=== PATIENT | male | born 1940 | race Caucasian/White ===

== ENCOUNTER 2022-10-15 16:54 | Emergency (ER) | payer MEDICARE, BC ==
[~2022-10-15] VITALS: Ht 180.3 cm; Wt 90.9 kg
[2022-10-15 17:00] VITALS: BP 138/70
[2022-10-15 17:16] VITALS: BP 127/87
[2022-10-15 17:31] VITALS: BP 145/74
[2022-10-15 17:34] LABS: BASO% 0.1 % (0-3); EOS% 1.7 % (0-8); HEMATOCRIT 40.9 % (39.0-50.0); HEMOGLOBIN 13.7 g/dl (14.0-18.0); IMMATURE GRANULOCYTES 0.1 % (0.0-5.0); MEAN CELL VOLUME 97.4 fL CALC (80.0-100.0); MEAN CORPUSCULAR HGB 32.6 pG CALC (26.0-32.0); MEAN CORPUSCULAR HGB CONC 33.5 g/dL CAL (32.0-36.0); MONO% 7.6 % (2-13); NEUT# 5.57 thou/uL (1.82-7.42); NEUT% 71.5 % (42-76); RED BLOOD COUNT 4.2 mill/uL (4.70-6.10); RED CELL DISTRI WIDTH 13.1 % (11.5-15.5)
[2022-10-15 17:47] LABS: ALBUMIN 3.9 g/dL (3.2-5.0); ALKALINE PHOSPHATASE 87 u/l (38-126); ANION GAP 8 (6-22 (CALC)); BILIRUBIN, TOTAL 0.8 mg/dL (0.2-1.3); BUN 17 mg/dL (8-23); BUN/CREATININE RATIO 19 (12-20 (CALC)); CARBON DIOXIDE 30 mmol/l (22-30); CHLORIDE 104 mmol/l (95-108); CREATININE 0.9 mg/dL (0.7-1.3); GFR FOR AFR.AMER. > 60 ML/MIN (>=60 (CALC)); GFR OTHER RACES > 60 ML/MIN (>=60 (CALC)); POTASSIUM 4.7 mmol/l (3.5-5.1); SGOT/AST 31 u/l (19-48); SODIUM 138 mmol/l (137-146); TOTAL PROTEIN 6.1 g/dL (6.3-8.2)
[2022-10-15 19:02] VITALS: BP 156/69
[2022-10-15 19:16] VITALS: BP 144/79
[2022-10-15 19:22] VITALS: BP 144/79
== END 2022-10-15 19:41 | disposition home or self-care (01) ==
LOC: ED 16:54
PROVIDERS: Nurse Practitioner
DX: S46.912A Strain of unspecified muscle, fascia and tendon at shoulder and upper arm level, left arm, initial encounter (principal); S51.012A Laceration without foreign body of left elbow, initial encounter; W01.0XXA Fall on same level from slipping, tripping and stumbling without subsequent striking against object, initial encounter